=== PATIENT | female | born 1990 | race Caucasian/White ===

== ENCOUNTER 2021-02-19 00:05 | Emergency (ER) | payer MEDICAID ==
[~2021-02-19] VITALS: Ht 167.6 cm; Wt 81.6 kg
[2021-02-19 00:13] VITALS: BP_SYST 118
--- NOTE | 2021-02-19 00:55 | NUR ---
Patient to ER Chair tray paris for evaluation. Side rails up. Report given to NATALYA [place] Addendum: 02/19/21 at 0057 by [email or web address] placed in bed 1
[2021-02-19] MEDS ORDERED: CEPH-548 PO (01:00)
--- NOTE | 2021-02-19 01:13 | NUR ---
PT CAME INTO ER WITH C/O OF PURULENT DISCHAGRE FROM SITE, TO MID AREA OF SITE ONLY. PT DELIVERED 01/28/21. SUTURES WERE REMOVED BY [employer] CQ DEVELOPER ALREADY. SHE NOTICED DRAINAGE YESTERDAY, WHEN SHE PRESSED ON AREA GOOD AMOUNT OF DISCHARGE DRAINED. NO REDNESS NOTED TO AREA, AFEBRILE, NO N/V/D.
--- NOTE | 2021-02-19 01:20 | NUR ---
Patient given written and verbal discharge instructions and verbalizes understanding. ER MD discussed with patient the results and treatment provided. Patient in stable condition. ID arm band removed. Rx of CEPHALEXIN given. Patient educated on pain management and to follow up with PMD. Pain Scale 0 Opportunity for questions provided and answered. Medication side effect fact sheet provided.
[2021-02-19 01:21] VITALS: BP_SYST 118
== END 2021-02-19 01:20 | disposition home or self-care (01) ==
LOC: SED 00:05
DX: O90.0 Disruption of cesarean delivery wound (principal); Z79.899 Other long term (current) drug therapy
CPT/HCPCS: 99283